=== PATIENT | female | born 1960 | race African-American/Black ===

== ENCOUNTER 2016-05-24 18:09 | Emergency (ER) | payer BC ==
[~2016-05-24] VITALS: Ht 165.1 cm; Wt 131.5 kg
[2016-05-24 19:50] LABS: BASO # 0.1 x10^3/uL (0.0-0.2); BASO % 1 % (0-3); EOS % 4 % (0-3); HEMATOCRIT 35.4 % (36.0-47.0); HEMOGLOBIN 11.5 g/dL (12.0-15.5); LYMPH # 1.6 x10^3/uL (1.0-4.8); LYMPH % 26 % (24-48); MEAN CORPUSCULAR HEMOGLOBIN 32 pg (25-35); MEAN CORPUSCULAR HGB CONC 33 g/dL (31-37); MEAN CORPUSCULAR VOLUME 98 fL (79-100); MONO % 10 % (0-9); NEUT % 58 % (31-73); PLATELET COUNT 275 x10^3/uL (140-400); RED BLOOD COUNT 3.62 x10^6/uL (3.50-5.40); RED CELL DISTRIBUTION WIDTH 14.6 % (11.5-14.5); WHITE BLOOD COUNT 6.1 x10^3/uL (4.0-11.0)
[2016-05-24 20:00] LABS: CREATININE 2.9 mg/dL (0.6-1.0); GFR 20.5; POTASSIUM 5.3 mmol/L (3.5-5.1)
--- NOTE | 2016-05-24 20:03 | PHYS DOC ---
Past Medical History Past Medical History: Diabetes-Type II, High Cholesterol Additional Past Medical Histor: CHRONIC KIDNEY FAILURE, NEUROPATHY, CHRONIC MUSCLE SPASMS Past Surgical History: Other Additional Past Surgical Histo: DISC REMOVED FROM BACK Alcohol Use: None Drug Use: None Adult General Chief Complaint Chief Complaint: ABNORMAL LABS [facility] HPI Patient is a 55 year old female who presents to the emergency department for evaluation of abnormal lab work. The patient has history of type 2 diabetes mellitus, hyperlipidemia, and chronic kidney disease stage IV. Patient had blood work drawn yesterday at the order of Dr. Mariscal. The patient was contacted today due to abnormal potassium level of 6.0. The patient currently denies any abnormal symptoms and states that she feels at her baseline state of health. Patient has not had any lightheadedness, nausea, shortness of breath, or increasing swelling. The patient states that she only came to the emergency department because she was contacted by her doctor's office and told to come for evaluation. Review of Systems Review of Systems Constitutional: Denies fever or chills [] Eyes: Denies change in visual acuity, redness, or eye pain [] HENT: Denies nasal congestion or sore throat [] Respiratory: Denies cough or shortness of breath [] Cardiovascular: No additional information not addressed in HPI [] GI: Denies abdominal pain, nausea, vomiting, bloody stools or diarrhea [] : Denies dysuria or hematuria [] Musculoskeletal: Denies back pain or joint pain [] Integument: Denies rash or skin lesions [] Neurologic: Denies headache, focal weakness or sensory changes [] Endocrine: Denies polyuria or polydipsia [] Allergies Allergies Allergies Coded Allergies Type Severity Reaction Last Updated Verified No Known Drug Allergies 05/24/16 No Physical Exam Physical Exam Constitutional: Alert, obese, afebrile, no acute distress. [] HENT: Normocephalic, atraumatic, bilateral external ears normal, oropharynx moist, no oral exudates, nose normal. [] Eyes: PERRLA, EOMI, conjunctiva normal, no discharge. [] Neck: Normal range of motion, no tenderness, supple, no stridor. [] Cardiovascular:Heart rate regular rhythm, no murmur [] Lungs & Thorax: Bilateral breath sounds clear to auscultation [] Abdomen: Bowel sounds normal, soft, no tenderness, no masses, no pulsatile masses. [] Skin: Warm, dry, no erythema, no rash. [] Back: No tenderness, no CVA tenderness. [] Extremities: No tenderness, no cyanosis, no clubbing, ROM intact, no edema. [] Neurologic: Alert and oriented X 3, normal motor function, normal sensory function, no focal deficits noted. [] Current Patient Data Vital Signs Vital Signs Date Time Temp Pulse Resp B/P Pulse Ox O2 Delivery O2 Flow Rate FiO2 05/24/16 19:23 97.6 90 18 170/90 100 Room Air 97.6 Lab Values Laboratory Tests Test 05/24/16 19:18 White Blood Count 6.1x10^3/uL (4.0-11.0) Red Blood Count 3.62x10^6/uL (3.50-5.40) Hemoglobin 11.5g/dL (12.0-15.5) L Hematocrit 35.4% (36.0-47.0) L Mean Corpuscular Volume 98fL (79-100) Mean Corpuscular Hemoglobin 32pg (25-35) Mean Corpuscular Hemoglobin Concent 33g/dL (31-37) Red Cell Distribution Width 14.6% (11.5-14.5) H Platelet Count 275x10^3/uL (140-400) Neutrophils (%) (Auto) 58% (31-73) Lymphocytes (%) (Auto) 26% (24-48) Monocytes (%) (Auto) 10% (0-9) H Eosinophils (%) (Auto) 4% (0-3) H Basophils (%) (Auto) 1% (0-3) Neutrophils # (Auto) 3.5x10^3uL (1.8-7.7) Lymphocytes # (Auto) 1.6x10^3/uL (1.0-4.8) Monocytes # (Auto) 0.6x10^3/uL (0.0-1.1) Eosinophils # (Auto) 0.3x10^3/uL (0.0-0.7) Basophils # (Auto) 0.1x10^3/uL (0.0-0.2) Sodium Level 141mmol/L (136-145) Potassium Level 5.3mmol/L (3.5-5.1) H Chloride Level 107mmol/L (98-107) Carbon Dioxide Level 25mmol/L (21-32) Anion Gap 9 (6-14) Blood Urea Nitrogen 48mg/dL (7-20) H Creatinine 2.9mg/dL (0.6-1.0) H Estimated GFR (Cockcroft-Gault) 20.5 BUN/Creatinine Ratio 17 (6-20) Glucose Level 100mg/dL (70-99) H Calcium Level 9.0mg/dL (8.5-10.1) Magnesium Level 2.2mg/dL (1.8-2.4) Total Bilirubin 0.3mg/dL (0.2-1.0) Aspartate Amino Transferase (AST) 16U/L (15-37) Alanine Aminotransferase (ALT) 19U/L (14-59) Alkaline Phosphatase 132U/L (46-116) H Total Protein 8.4g/dL (6.4-8.2) H Albumin 3.3g/dL (3.4-5.0) L Albumin/Globulin Ratio 0.6 (1.0-1.7) L Laboratory Tests 05/24/16 19:18 Laboratory Tests 05/24/16 19:18 EKG EKG Interpreted by me: Heart rate 90, sinus rhythm, left axis deviation, incomplete right bundle branch block, no acute ST elevations or depressions [] Radiology/Procedures Radiology/Procedures Not performed [] Course & Med Decision Making Course & Med Decision Making Pertinent Labs and Imaging studies reviewed. (See chart for details) Patient's lab work was redrawn and showed a potassium level of 5.3. Patient's lab work from April 04, 2014 was reviewed and shows an essentially stable BUN and creatinine. Potassium at that time was 5.5. Patient is asymptomatic. The patient's elevated potassium may be the result of lab error. Considering that the patient is completely asymptomatic at this time I feel it is appropriate for patient to continue with outpatient care at this time. Recommended that the patient call her primary physician's office tomorrow morning and schedule a follow-up appointment in the next 3 days. Spoke with patient and patient's family regarding plan of care and they're in agreement at this time. Advised return emergency department for any worsening symptoms. Dragon Disclaimer Dragon Disclaimer This electronic medical record was generated, in whole or in part, using a voice recognition dictation system. Departure Departure Impression: Primary Impression: Chronic kidney disease, stage IV (severe) Disposition: 01 HOME, SELF-CARE Condition: STABLE Referrals: PARMJIT MARISCAL (PCP) Patient Instructions: Kidney Failure, [id number] Additional Instructions: Your potassium level today was 5.3. This is stable from your previous lab draw in April 2014. Your kidney function also appears stable compared to previous labs. It is recommended that she call your primary physician's office tomorrow to set up an appointment in the next 3 days for reevaluation. Return to the emergency department for any worsening symptoms. ANNEMARIE LOTT MD May 24, 2016 20:03
[2016-05-24 20:05] LABS: ALBUMIN 3.3 g/dL (3.4-5.0); ALBUMIN/GLOBULIN RATIO 0.6 (1.0-1.7); MAGNESIUM 2.2 mg/dL (1.8-2.4); TOTAL BILIRUBIN 0.3 mg/dL (0.2-1.0); TOTAL PROTEIN 8.4 g/dL (6.4-8.2)
[2016-05-24 20:16] VITALS: BP 143/68
--- NOTE | 2016-05-25 06:13 | EKG ---
[facility] [address] [place] [address] Test Date: 2016-05-24 Test Time: 19:17:10 Pat Name: ZAIDA MERCER Department: Room: Gender: F Patient Care: : 1960 Requested By: ANNEMARIE LOTT Order Number: [id number] Reading MD: Macarena Weiss Measurements Intervals [place] Rate: 90 P: 54 CA: 168 QRS: -48 QRSD: 94 T: 28 QT: 338 QTc: 417 Interpretive Statements SINUS RHYTHM LEFT ATRIAL ABNORMALITY ABNORMAL LEFT AXIS DEVIATION LEFT ANTERIOR FASCICULAR BLOCK INCOMPLETE RIGHT BUNDLE BRANCH BLOCK RI6.01 Unconfirmed report No previous ECG available for comparison Electronically Signed On 05-28-2016 20:21:43 CHIEF COOK by Macarena Weiss
== END 2016-05-24 20:48 | disposition home or self-care (01) ==
LOC: ER 18:09
DX: E11.22 Type 2 diabetes mellitus with diabetic chronic kidney disease (principal); N18.4 Chronic kidney disease, stage 4 (severe); E78.00 Pure hypercholesterolemia, unspecified; E66.9 Obesity, unspecified; E78.5 Hyperlipidemia, unspecified; E11.40 Type 2 diabetes mellitus with diabetic neuropathy, unspecified; Z68.42 Body mass index [BMI] 45.0-49.9, adult
CPT/HCPCS: 36415; 80053; 83735; 85027; 93005; 99285-25

== ENCOUNTER 2016-07-22 18:15 | Emergency (ER) | payer BC ==
[~2016-07-22] VITALS: Ht 165.1 cm; Wt 128.4 kg
[2016-07-22 19:17] VITALS: BP 144/95
--- NOTE | 2016-07-22 21:13 | PHYS DOC ---
Past Medical History Past Medical History: Diabetes-Type II, High Cholesterol Additional Past Medical Histor: CHRONIC KIDNEY FAILURE, NEUROPATHY, CHRONIC MUSCLE SPASMS Past Surgical History: Other Additional Past Surgical Histo: DISC REMOVED FROM BACK Alcohol Use: None Drug Use: None Adult General Chief Complaint Chief Complaint: BACK PAIN OR INJURY [facility] HPI Patient is a 55 year old female with history of diabetes type 2, kidney disease , high cholesterol, and chronic back with pain radiating to the right lower extremity and neck pain who presents today with no complaint. She states she had an MRI done as an outpatient. She states her doctor's office called her at 5 PM and told her to come to be the ED to be evaluated because she had called compression of C3-C4 and C 6 to C7. Patient states the MRI was done at an outpatient facility called [facility] and [facility]. Patient denies any complaints in the ED. She states she has a neurosurgeon at [facility]. Patient denies any injuries, denies any loss of bowel bladder function. Patient herself states she knows she was sent to the ED for no reason. Review of Systems Review of Systems Constitutional: Denies fever or chills [] Eyes: Denies change in visual acuity, redness, or eye pain [] HENT: Denies nasal congestion or sore throat [] Respiratory: Denies cough or shortness of breath [] Cardiovascular: No additional information not addressed in [facility] [] GI: Denies abdominal pain, nausea, vomiting, bloody stools or diarrhea [] : Denies dysuria or hematuria [] Musculoskeletal: Chronic back and neck pain Integument: Denies rash or skin lesions [] Neurologic: Denies headache, focal weakness or sensory changes [] Endocrine: Denies polyuria or polydipsia [] Allergies Allergies Allergies Coded Allergies Type Severity Reaction Last Updated Verified No Known Drug Allergies 05/24/16 No Physical Exam Physical Exam Constitutional: Well developed, well nourished, no acute distress, non-toxic appearance. [] HENT: Normocephalic, atraumatic, bilateral external ears normal, oropharynx moist, no oral exudates, nose normal. [] Eyes: PERRLA, EOMI, conjunctiva normal, no discharge. [] Neck: Old healed surgical stand noted midline cervical spine. Normal range of motion, no tenderness, supple, no stridor. [] Cardiovascular:Heart rate regular rhythm, no murmur [] Lungs & Thorax: Bilateral breath sounds clear to auscultation [] Abdomen: Bowel sounds normal, soft, no tenderness, no masses, no pulsatile masses. [] Skin: Warm, dry, no erythema, no rash. [] Back: No tenderness, no CVA tenderness. [] Extremities: No tenderness, no cyanosis, no clubbing, ROM intact, no edema. [] Neurologic: Alert and oriented X 3, normal motor function, normal sensory function, no focal deficits noted. [] Psychologic: Affect normal, judgement normal, mood normal. [] Current Patient Data Vital Signs Vital Signs Date Time Temp Pulse Resp B/P Pulse Ox O2 Delivery O2 Flow Rate FiO2 07/22/16 19:17 97.9 86 16 98 Room Air 97.9 EKG EKG [] Radiology/Procedures Radiology/Procedures [] Course & Med Decision Making Course & Med Decision Making Pertinent Labs and Imaging studies reviewed. (See chart for details) Please see history of present illness for further information, patient had MRI done as an outpatient and was noted to have C3- C4 and C6-C7, core compression. She has no neurological symptoms in the ED. We have no copies of the MRI. She has a neurosurgeon at [facility]. Neurologically she is intact. Discussed this case with Dr. Merritt. We agreed patient can be discharged and she needs to follow-up with her neurosurgeon on Monday as well as her PCP. She was provided return precautions and discharged in stable condition. Dragon Disclaimer Dragon Disclaimer This electronic medical record was generated, in whole or in part, using a voice recognition dictation system. Departure Departure Impression: Primary Impression: Back pain Disposition: 01 HOME, SELF-CARE Condition: STABLE Referrals: PARMJIT MARISCAL (PCP) Problem Qualifiers Primary Impression: Back pain Back pain location: low back pain Chronicity: chronic Back pain laterality : bilateral Sciatica presence: with sciatica Sciatica laterality: sciatica of right side Qualified Code: M54.41 - Lumbago with sciatica, right side GARY BRICENO [employer] Jul 22, 2016 21:13
== END 2016-07-22 21:10 | disposition home or self-care (01) ==
LOC: ER 18:15
DX: M54.41 Lumbago with sciatica, right side (principal); M54.2 Cervicalgia; E78.00 Pure hypercholesterolemia, unspecified; E11.22 Type 2 diabetes mellitus with diabetic chronic kidney disease; N18.9 Chronic kidney disease, unspecified; E11.40 Type 2 diabetes mellitus with diabetic neuropathy, unspecified
CPT/HCPCS: 99281

== ENCOUNTER → 2016-10-07 | Outpatient (CLI) | payer BC ==
--- NOTE | 2016-10-07 15:07 | KCIC ---
Cervical spine, 2 views, 10/07/2016: HISTORY: Postop evaluation No previous cervical radiographs are available at this time for comparison purposes. There has been an extensive cervical laminectomy from from C3 through C6. There are bilateral pedicle screws attached to longitudinally oriented bilateral posterior fixation rods at C3 and C4. The vertebral alignment appears normal. There is moderate disc space narrowing and marginal spurring at C3-4, C4-5, C5-6 and C6-7. There are mild degenerative changes involving scattered facet joints bilaterally. No prevertebral soft tissue swelling is seen. IMPRESSION: 1. Extensive postsurgical changes from C3 through C6, with instrumentation at C3-4 as described above. 2. Moderate multilevel degenerative change. Electronically signed by: Mendez Weston MD (10/07/2016 3:04 PM) [id number]
== END | disposition home or self-care (01) ==
LOC: KCIC 12:24
PROVIDERS: ATTEND Neurological Surgery
DX: M43.22 Fusion of spine, cervical region (principal)
CPT/HCPCS: 72040

== ENCOUNTER → 2016-10-28 | Outpatient (CLI) | payer BC ==
--- NOTE | 2016-10-28 14:26 | KCIC ---
EXAM: Renal sonogram. HISTORY: Renal insufficiency. TECHNIQUE: Sonographic imaging of the kidneys and bladder was performed. COMPARISON: None. FINDINGS: The right kidney measures 10.3 cm [id number] and the left kidney measures 10.6 cm [id number]. No solid or cystic renal lesion is seen. The renal parenchyma is echogenic. There is no hydronephrosis. The ureteral jets are not seen. The bladder is not distended. The aorta is normal in caliber. The inferior vena cava is obscured due to bowel gas and body habitus. IMPRESSION: 1. Echogenic renal parenchyma, a finding which can be seen with medical renal disease. 2. Nonvisualization of the ureteral jets during the exam. The bladder is relatively underdistended. Electronically signed by: Carrie Tariq MD (10/28/2016 2:23 PM) [facility]
== END | disposition home or self-care (01) ==
LOC: KCIC US 13:23
PROVIDERS: ATTEND Internal Medicine Nephrology
DX: E11.9 Type 2 diabetes mellitus without complications (principal); N28.9 Disorder of kidney and ureter, unspecified
CPT/HCPCS: 76770

== ENCOUNTER → 2017-01-02 | Outpatient (CLI) | payer BC ==
--- NOTE | 2017-01-02 15:27 | KCIC ---
C-SPINE 2 VIEWS Clinical Indication: Post cervical fusion August 2016. Comparison: Cervical spine, 2 views, October 07, 2016 Findings: AP and lateral views. Straightening of normal cervical lordosis may be positional or due to muscle spasm. There is posterior fusion hardware C3-C4. There is slight lucency along the C4 screws which could indicate loosening. Question faint lucency along the left C3 screw. There is redemonstrated posterior decompression of C3-C6. There is disc space narrowing and degenerative endplate spurring in the cervical spine with relative sparing of C2/C3 and C7/T1. No spondylolisthesis. The prevertebral soft tissues are normal. Normal appearance of the airway. IMPRESSION: There is lucency along the C4 screws which could indicate loosening. Otherwise stable findings. Electronically signed by: Jose Rafael Wyman MD (01/02/2017 3:24 PM) [id number]
== END | disposition home or self-care (01) ==
LOC: KCIC 14:27
PROVIDERS: ATTEND Neurological Surgery
DX: M50.20 Other cervical disc displacement, unspecified cervical region (principal); Z98.1 Arthrodesis status
CPT/HCPCS: 72040

== ENCOUNTER → 2017-05-05 | Outpatient (CLI) | payer BC | END | disposition home or self-care (01) | LOC: KCIC 11:31 | DX: M40.292 Other kyphosis, cervical region (principal); M48.02 Spinal stenosis, cervical region; Z98.1 Arthrodesis status | CPT/HCPCS: 72040 ==